=== PATIENT | male | born 1995 | race African-American/Black ===

== ENCOUNTER 2018-10-01 09:51 | Emergency (ER) | payer BC, SELFPAY | END 2018-10-01 10:23 | disposition home or self-care (01) | LOC: ERS 09:51 | DX: M62.830 Muscle spasm of back (principal); F17.210 Nicotine dependence, cigarettes, uncomplicated | CPT/HCPCS: 99283 ==

== ENCOUNTER 2018-10-22 19:27 | Emergency (ER) | payer BC | END 2018-10-22 20:41 | disposition home or self-care (01) | LOC: ERS 19:27 | DX: M54.5 Low back pain (principal); F17.210 Nicotine dependence, cigarettes, uncomplicated | CPT/HCPCS: 99283 ==

== ENCOUNTER 2019-07-31 11:25 | Emergency (ER) | payer BC, SELFPAY ==
--- NOTE | 2019-07-31 11:48 | RAD ---
RIGHT ANKLE 3 VIEWS: HISTORY: Injury, right ankle pain FINDINGS: The ankle mortise is maintained. No acute fracture or dislocation is identified.
--- NOTE | 2019-07-31 11:49 | RAD ---
XR Foot Rt 3 View STANDARD HISTORY: Injury, right foot pain FINDINGS: No fracture or dislocation is identified.
== END 2019-07-31 12:27 | disposition home or self-care (01) ==
LOC: ERS 11:25
DX: S90.31XA Contusion of right foot, initial encounter (principal); F17.210 Nicotine dependence, cigarettes, uncomplicated; W22.8XXA Striking against or struck by other objects, initial encounter
CPT/HCPCS: 99406

== ENCOUNTER 2020-02-08 01:02 | Emergency (ER) | payer BC | END 2020-02-08 01:40 | disposition home or self-care (01) | LOC: ERS 01:02 | DX: K03.81 Cracked tooth (principal); K02.9 Dental caries, unspecified; F17.210 Nicotine dependence, cigarettes, uncomplicated; Z79.899 Other long term (current) drug therapy | CPT/HCPCS: 99283 ==

== ENCOUNTER 2020-04-24 04:57 | Emergency (ER) | payer BC | END 2020-04-24 05:20 | disposition home or self-care (01) | LOC: ERS 04:57 | DX: Z04.1 Encounter for examination and observation following transport accident (principal); F17.290 Nicotine dependence, other tobacco product, uncomplicated | CPT/HCPCS: 99281 ==

== ENCOUNTER 2020-04-30 07:35 | Emergency (ER) | payer BC | END 2020-04-30 08:29 | disposition home or self-care (01) | LOC: ERS 07:35 | DX: S80.211A Abrasion, right knee, initial encounter (principal); F17.290 Nicotine dependence, other tobacco product, uncomplicated; V89.2XXA Person injured in unspecified motor-vehicle accident, traffic, initial encounter | CPT/HCPCS: 99281 ==